=== PATIENT | male | born 1990 | race Caucasian/White ===

== ENCOUNTER → 2018-01-30 | Outpatient (CLI) | payer OTHER | LOC: BMCIMAGING 13:47 | PROVIDERS: ATTEND Internal Medicine Endocrinology, Diabetes & Metabolism | DX: Z13.820 Encounter for screening for osteoporosis (principal); M85.89 Other specified disorders of bone density and structure, multiple sites; E21.3 Hyperparathyroidism, unspecified; Z87.81 Personal history of (healed) traumatic fracture | CPT/HCPCS: 76536-PO ==